=== PATIENT | male | born 1975 | race Caucasian/White ===

== ENCOUNTER 2016-12-05 09:41 | Emergency (ER) | payer SELFPAY ==
[2016-12-05 09:57] VITALS: BP 123/73
[2016-12-05] MEDS ORDERED: cefTRIAXone 2 GM in Sodium Chloride 0.9% 100 ML IV ONE (10:05)
[2016-12-05] MEDS ORDERED: Doxycycline 100 MG Cap PO ONE (10:06)
--- NOTE | 2016-12-05 10:10 | EDM.PDOC ---
ED HPI GENERAL MEDICAL PROBLEM - General Chief Complaint: Lower Extremity Injury/Pain Stated Complaint: LEG INJURY Time Seen by Provider: 12/05/16 09:55 Source of Information: Reports: Patient History Limitations: Reports: No Limitations - History of Present Illness INITIAL COMMENTS - FREE TEXT/NARRATIVE: 41-year-old male sent up from the occupational health clinic due to onset of swelling and redness of his right lower extremity over the last 24 hours. No known injuries. Patient does do a lot of work on his knees and these are callused. he states it hurts a little bit inferior to his knee like over the tibial tuberosity yesterday but overnight the leg has become grossly swollen and diffusely erythematous. He does not feel ill in terms of fever chills nausea or vomiting but doesn't feel fantastic either. Painful to walk painful to bend the knee. No previous similar problems. He is not diabetic. Had to miss work today due to leg pain. Onset: Today, Gradual ( Helical little bit of pain and redness inferior to his knee Yesterday but the entire leg is red and swollen today.) Onset Date: 12/04/16 Duration: Hour(s): Location: Reports: Lower Extremity, Right Quality: Reports: Ache, Throbbing Severity: Moderate Improves with: Reports: None Worsens with: Reports: Movement Context: Denies: Activity, Exercise ( Flexing the knee.), Lifting, Sick Contact , Trauma, Other Associated Symptoms: Reports: Malaise. Denies: No Other Symptoms, Confusion, Chest Pain, Cough, cough w sputum, Diaphoresis, Fever/Chills, Headaches, Loss of Appetite, Nausea/Vomiting, Rash, Seizure, Shortness of Breath, Syncope, Weakness Right Lower Leg Pain Score (Numeric/FACES): 7 - Related Data Allergies Allergy/AdvReac Type Severity Reaction Status Date / Time No Known Allergies Allergy Verified 12/05/16 09:57 Home Meds: Home Meds Ciprofloxacin HCl [Cipro] 500 mg PO BID #16 tablet 12/05/16 [Rx] Doxycycline [Vibramycin] 100 mg PO Q12HR #20 cap 12/05/16 [Rx] Social & Family History - Living Situation & Occupation Living situation: Reports: Occupation: Employed Review of Systems - Review of Systems Review Of Systems: See Below Constitutional: Denies: Chills, Diaphoresis, Fever, Weakness, Other Eyes: Reports: No Symptoms Ears: Reports: No Symptoms Nose: Reports: No Symptoms Mouth/Throat: Reports: No Symptoms Respiratory: Reports: No Symptoms Cardiovascular: Reports: No Symptoms GI/Abdominal: Reports: No Symptoms Genitourinary: Reports: No Symptoms Musculoskeletal: Reports: Leg Pain ( Right side see history of present illness) Skin: Reports: Erythema ( and swelling of the right lower extremity from the knee to the ankle) Neurological: Reports: No Symptoms Psychiatric: Reports: No Symptoms ED EXAM, GENERAL - Physical Exam Exam: See Below Exam Limited By: No Limitations General Appearance: Alert, WD/WN, No Apparent Distress Respiratory/Chest: No Respiratory Distress, Lungs Clear, Normal Breath Sounds, No Accessory Muscle Use Cardiovascular: Normal Peripheral Pulses, No Edema, No Murmur, Tachycardia ( resting heart rate of 1 10/m.) Peripheral Pulses: 3+: Posterior Tibial (L), Posterior Tibial (R), Dorsalis Pedis (L), Dorsalis Pedis (R) GI/Abdominal: Normal Bowel Sounds, Soft, No Organomegaly (Male) Exam: No Hernia, Normal Inspection, Inguinal Lymphadenopathy ( Normal shotty lymphadenopathy without any lymphadenitis in the right groin.) Back Exam: Normal Inspection, Full Range of Motion. No: CVA Tenderness (L), CVA Tenderness (R) Extremities: Redness ( The entire leg from the above the knee Down to the ankle is extremely erythematous and warm to palpation. There is a slight meniscus missing skin or superficial ulceration over the kneecap which is heavily callused. I suspect this is the nidus of infection. There is no weeping or oozing or drainage. Has a tattoo medial aspect of the leg that's been present for 20 years. The calf itself is for is soft palpation and easily pliable with no pain on palpation of the posterior midline of the leg to suggest a DVT. I suspect this is all cellulitis.) Neurological: Alert, Oriented, CN II-XII Intact, Normal Cognition Psychiatric: Normal Affect, Normal Mood Skin Exam: Warm, Dry, Intact, Normal Color, Erythema ( Right lower extremity from knee to ankle.), Increased Warmth, Rash ( Cellulitis rash.), Tattoo(s) ( Medial aspect of the right leg which is been present for 20 years.) Course - Vital Signs Last Recorded V/S: Last Vital Signs Temp 36.8 C 08/30/17 09:51 Pulse 110 H 12/05/16 09:51 Resp 18 12/05/16 09:51 BP 123/73 12/05/16 09:51 Pulse Ox 99 12/05/16 09:51 - Orders/Labs/Meds Orders: Active Orders 24 hr Category Date Time Status CULTURE BLOOD [BC] Stat Lab 12/05/16 11:30 Received CULTURE BLOOD [BC] Stat Lab 12/05/16 11:45 Received Sodium Chloride 0.9% [Normal Saline] 1,000 ml Med 12/05/16 10:15 Active IV ASDIRECTED Blood Culture x2 Reflex Set [OM.PC] Stat Oth 12/05/16 10:06 Ordered Medication Orders Sodium Chloride (Normal Saline) 1,000 mls @ 100 mls/hr IV ASDIRECTED DENTON Last Admin: 12/05/16 11:35 Dose: 100 mls/hr Labs: Laboratory Tests 12/05/16 12/05/16 12/05/16 Range/Units 11:30 11:30 11:30 WBC 8.21 (4.23-9.07) K/mm3 RBC 4.49 L (4.63-6.08) M/mm3 Hgb 14.4 (13.7-17.5) gm/L Hct 41.6 (40.1-51.0) % MCV 92.7 H (79.0-92.2) fl MCH 32.1 (25.7-32.2) pg MCHC 34.6 (32.2-35.5) g/dl RDW Std Deviation 43.4 (35.1-43.9) fL Plt Count 198 (163-337) K/mm3 MPV 9.4 (9.4-12.3) fl Neutrophils % (Manual) 69 H (40-60) % Band Neutrophils % 0 (0-10) % Lymphocytes % (Manual) 29 (20-40) % Atypical Lymphs % 0 % Monocytes % (Manual) 2 (2-10) % Eosinophils % (Manual) 0 L (0.8-7.0) % Basophils % (Manual) 0 L (0.2-1.2) Platelet Estimate Adequate RBC Morph Comment Normal ESR 28 H (0-15) mm/hr Sodium 137 (136-145) mEq/L Potassium 3.4 L (3.5-5.1) mEq/L Chloride 103 (98-107) mEq/L Carbon Dioxide 27 (21-32) mEq/L Anion Gap 10.4 (5-15) BUN 14 (7-18) mg/dL Creatinine 1.0 (0.7-1.3) mg/dL Est Cr Clr Drug Dosing 95.00 mL/min Estimated GFR (MDRD) > 60 (>60) mL/min BUN/Creatinine Ratio 14.0 (14-18) Glucose 109 H (74-106) mg/dL Calcium 9.4 (8.5-10.1) mg/dL Total Bilirubin 0.7 (0.2-1.0) mg/dL AST 15 (15-37) U/L ALT 20 (16-63) U/L Alkaline Phosphatase 66 (46-116) U/L C-Reactive Protein 8.2 H* (<1.0) mg/dL Total Protein 7.4 (6.4-8.2) g/dl Albumin 3.4 (3.4-5.0) g/dl Globulin 4.0 gm/dL Albumin/Globulin Ratio 0.9 L (1-2) Meds: Medications Generic Name Dose Route Start Last Admin Trade Name Freq PRN Reason Stop Dose Admin Sodium Chloride 1,000 mls @ 100 mls/hr 12/05/16 10:15 12/05/16 11:35 Normal Saline IV 100 mls/hr ASDIRECTED DENTON Administration Discontinued Medications Generic Name Dose Route Start Last Admin Trade Name Freq PRN Reason Stop Dose Admin Doxycycline Hyclate 200 mg 12/05/16 10:06 12/05/16 11:43 Vibramycin PO 12/05/16 10:07 200 mg ONETIME ONE Administration Ceftriaxone Sodium 2 gm/ 100 mls @ 200 mls/hr 12/05/16 10:05 12/05/16 11:43 Sodium Chloride IV 12/05/16 10:34 200 mls/hr ONETIME ONE Administration - Radiology Interpretation Free Text/Narrative:: 41-year-old Male presents to the ED with acute erythema and swelling of his right lower extremity over the last 24 hours. On examination he has an active cellulitis of his entire leg. He states that he had some mild pain inferior to his kneecap over the tibial tuberosity yesterday and it's progressed very quickly overnight to become grossly swollen and erythematous. The right leg is almost 2 times the size of the left leg at this time. Clinically he does not have a DVT. he has no signs of systemic illness from infection at this time. He has sinus tachycardia at 110/min at rest. But he has not yet ate or drank today. plan DI ultrasound of the leg will be obtained to rule out a DVT. Labs will be collected including blood cultures 2. He will be given Rocephin 2 g intravenously and doxycycline 200 mg orally. - Re-Assessments/Exams Free Text/Narrative Re-Assessment/Exam: 12/05/16 11:56Doppler ultrasound was performed on the right lower leg and it was negative for any DVT. He did suggest edema and cellulitis. Also multiple small lymph nodes are appreciated in the inguinal area which were palpable on exam. there is been a delay in obtaining blood cultures 2 and therefore antibiotics have yet to be started. Also lab tests are not yet available. 12/05/16 12:32Labs reveal a normal white count at 8.21 with 69% neutrophils and no bands hemoglobin is 14.4 with hematocrit of 41.6. Platelets are normal chemistry showed a slightly low potassium at 3.4. The remainder the chemistry is normal. CRP is mildly elevated at 8.2 sedimentation rate is 28. Treatment will be continuing doxycycline 100 mg twice daily for another 10 days as well as use of Cipro 500 twice daily for 8 days to clear up cellulitis infection in his right leg.he'll be out 12/05/16 12:34: Will be out of work until December 10 Departure - Departure Time of Disposition: 12:35 Disposition: Home, Self-Care 01 Condition: Fair Clinical Impression: Cellulitis of right lower extremity - Discharge Information Prescriptions: Doxycycline [Vibramycin] 100 mg PO Q12HR #20 cap Ciprofloxacin HCl [Cipro] 500 mg PO BID #16 tablet Instructions: Cellulitis, Adult Referrals: PCP,None [Primary Care Provider] - Forms: ED Department Discharge, ED Return to Work/School Form Additional Instructions: Evaluation in the emergency department today in regards to acute onset of redness and swelling and pain in the right lower extremity from the knee to the ankle. As you stated there was slight discomfort below the kneecap yesterday and this morning the entire leg is now red and swollen. We call this cellulitis which means infection spreading under the skin. It is almost always caused by a staph aureus bacteria that is already on our skin but found a way to get under the skin through a kai, scrape etc. Lab work revealed a normal white count but markers for underlying infection are slightly elevated with a CRP of 8.2 and normal is 1. You were therefore treated with antibiotics Rocephin 2 g intravenously and doxycycline was started orally 200 mg by mouth today. Treatment at home will be to elevate the leg is much as possible for the next 48 hours. Antibiotics are to be Cipro 500 mg by mouth twice daily for 8 days and doxycycline 100 mg twice daily for 10 days starting at [facility]. Motrin 600 mg every 6 hours needed to reduce pain and inflammation. There may not be much change in the redness or swelling in the next 24 hours and in fact it may look a little bit worse. But over the next 24 hours , ie. 48 hrs posttreatment marked improvement in the redness and swelling should be evident. It should nearly be back to normal in 72 hours. You would need to return to the hospital if the redness was traveling up to your groin he developed nausea vomiting or severe fever and chills. Otherwise off work until December 10 which is Day. - My Orders Last 24 Hours: My Active Orders 12/05/16 10:06 Blood Culture x2 Reflex Set [OM.PC] Stat 12/05/16 10:15 Sodium Chloride 0.9% [Normal Saline] 1,000 ml IV ASDIRECTED 12/05/16 11:30 CULTURE BLOOD [BC] Stat 12/05/16 11:45 CULTURE BLOOD [BC] Stat - Assessment/Plan Last 24 Hours: My Active Orders 12/05/16 10:06 Blood Culture x2 Reflex Set [OM.PC] Stat 12/05/16 10:15 Sodium Chloride 0.9% [Normal Saline] 1,000 ml IV ASDIRECTED 12/05/16 11:30 CULTURE BLOOD [BC] Stat 12/05/16 11:45 CULTURE BLOOD [BC] Stat
[2016-12-05] MEDS ORDERED: Sodium Chloride 0.9% 1,000 ML IV SCH (10:15)
--- NOTE | 2016-12-05 11:31 | US ---
Right right lower extremity deep venous ultrasound: Duplex and color flow imaging was obtained of the right common femoral, proximal greater saphenous, superficial femoral, popliteal, posterior tibial and peroneal veins. Left common femoral vein was also evaluated. Findings: Normal phasic flow, augmentation and compression is seen. Multiple lymph nodes are seen within the right groin which are felt to be incidental if patient has no palpable abnormalities. Impression: 1. No evidence of deep venous thrombosis within the right lower extremity or within the left common femoral vein. 2. Lymph nodes as noted above. Diagnostic code #2
== END 2016-12-05 13:35 | disposition home or self-care (01) ==
LOC: JD.ED 09:41
DX: L03.115 Cellulitis of right lower limb (principal)
CPT/HCPCS: 36415; 80053; 85025; 85652; 86140; 87040; 93971; 96361; 96365; 99284; A9270; J0696; J7030; J7040; 99283

== ENCOUNTER 2019-07-05 17:33 | Emergency (ER) | payer SELFPAY ==
[2019-07-05 17:46] VITALS: BP 136/87; PULSE 122
--- NOTE | 2019-07-05 18:16 | EDM.PDOC ---
ED HPI GENERAL MEDICAL PROBLEM - General Chief Complaint: General Stated Complaint: DRUG TEST Time Seen by Provider: 07/05/19 17:39 Source of Information: Reports: Patient History Limitations: Reports: No Limitations - History of Present Illness INITIAL COMMENTS - FREE TEXT/NARRATIVE: Mr. Vasquez is a very pleasant 44-year-old man with no chronic medical problems, who now presents to the ED stating that he started feeling like his face was pale and flushed, and that he had a burning sensation in his chest and abdomen, along with rapid and irregular palpitations and slight nausea, around 9:30 this morning. No prior similar symptoms. Here in the ED, the patient is found to be tachycardic at 122 bpm, otherwise, he is hemodynamically stable, afebrile, saturating 100% on room air. The patient states that he drinks 2 drinks per day, with the most recent drink around 14:00 afternoon. He acknowledges that he used to snort smoke, and injecting methamphetamine, but he states that the last time he did that was in October 2018, just prior to going to long term. He states that he was released from long term on 06/18/2019, and that he has not resumed using methamphetamine or any other drugs. The patient denies recent fever, chills, cough, dyspnea, chest pain, palpitations, vomiting, constipation, diarrhea, abdominal pain, urinary symptoms , recent weight gain or weight loss, recent bloody bowel movements or black bowel movements, recent joint aches, headaches, or rashes. The patient does not have a PCP. He did not receive an influenza vaccine this season, and declined an offer to receive one here today. - Related Data Allergies Allergy/AdvReac Type Severity Reaction Status Date / Time No Known Allergies Allergy Verified 07/05/19 17:46 Home Meds: Home Meds . [No Known Home Meds] 07/05/19 [History] Past Medical History HEENT History: Reports: Impaired Vision - Past Surgical History HEENT Surgical History: Reports: Oral Surgery (2 wisdom teeth extracted) Social & Family History - Family History Family Medical History: Noncontributory - Tobacco Use Smoking Status *Q: Current Every Day Smoker Years of Tobacco use: 30 Packs/Tins Daily: 1 Packs/Tins Daily Comment: Down from 1.5 ppd - Caffeine Use Caffeine Use: Reports: Coffee - Alcohol Use Alcohol Use History: Yes Days Per Week of Alcohol Use: 7 Number of Drinks Per Day: 2 Total Drinks Per Week: 14 Alcohol Use Frequency: Daily - Recreational Drug Use Recreational Drug Use: Yes Drug Use in Last 12 Months: Yes Recreational Drug Type: Reports: Cocaine (last snorted around 2004), Marijuana/ Hashish (last smoked around 1996), Methamphetamine (last snorted, smoked, or injected October 2018), Psilocybin (Mushrooms) (last ate around 2009) - Living Situation & Occupation Living situation: Reports: , with Family Occupation: Unemployed ED ROS GENERAL - Review of Systems Review Of Systems: Comprehensive ROS is negative, except as noted in HPI. ED EXAM, GENERAL - Physical Exam Exam: See Below Exam Limited By: No Limitations General Appearance: Alert, WD/WN, No Apparent Distress Eye Exam: Bilateral Eye: EOMI, Normal Inspection Ears: Normal External Exam, Hearing Grossly Normal Nose: Normal Inspection Throat/Mouth: Normal Inspection, Normal Lips, Normal Voice, No Airway Compromise Head: Atraumatic, Normocephalic Neck: Normal Inspection, Full Range of Motion Respiratory/Chest: No Respiratory Distress, Lungs Clear, Normal Breath Sounds, No Accessory Muscle Use Cardiovascular: Normal Peripheral Pulses, No Edema, No Gallop, No JVD, No Murmur , No Rub, Tachycardia (regular) Peripheral Pulses: 4+: Radial (L), Radial (R) GI/Abdominal: Normal Bowel Sounds, Soft, Non-Tender, No Organomegaly, No Distention, No Abnormal Bruit, No Mass (Male) Exam: Deferred Rectal (Males) Exam: Deferred Back Exam: Normal Inspection, Full Range of Motion, NT Extremities: Normal Inspection, Normal Range of Motion, No Pedal Edema, Normal Capillary Refill Neurological: Alert, Oriented, Normal Cognition, No Motor/Sensory Deficits Psychiatric: Normal Affect Skin Exam: Warm, Dry, Intact, Normal Color, No Rash EKG INTERPRETATION EKG Date: 07/05/19 Time: 18:26 Rhythm: Other (Sinus tachycardia) Rate (Beats/Min): 124 [place]: Normal P-Wave: Present QRS: Normal ST-T: Normal QT: Normal Comparison: NA - No Prior EKG Course - Vital Signs Last Recorded V/S: Last Vital Signs Temp 37.3 C 07/05/19 17:43 Pulse 122 H 07/05/19 17:43 Resp 19 07/05/19 17:43 BP 136/87 07/05/19 17:43 Pulse Ox 100 07/05/19 17:43 - Orders/Labs/Meds Orders: Active Orders 24 hr Category Date Time Status EKG Documentation Completion [RC] STAT Care 07/05/19 18:00 Active Magnesium Sulfate/Water [Magnesium Sulfate in Water Med 07/05/19 19:37 Ordered Premix] 2 gm Premix Bag 1 bag IV ONETIME Medication Orders Magnesium Sulfate 2 gm/ Premix 50 mls @ 50 mls/hr IV ONETIME ONE Stop: 07/05/19 20:36 Labs: Laboratory Tests 07/05/19 07/05/19 07/05/19 Range/Units 18:20 18:20 18:20 WBC 8.37 (4.23-9.07) K/mm3 RBC 4.53 L (4.63-6.08) M/mm3 Hgb 15.0 (13.7-17.5) gm/dl Hct 42.6 (40.1-51.0) % MCV 94.0 H (79.0-92.2) fl MCH 33.1 H (25.7-32.2) pg MCHC 35.2 (32.2-35.5) g/dl RDW Std Deviation 43.7 (35.1-43.9) fL Plt Count 201 (163-337) K/mm3 MPV 9.2 L (9.4-12.3) fl Neutrophils % (Manual) 82 H (40-60) % Band Neutrophils % 1 (0-10) % Lymphocytes % (Manual) 12 L (20-40) % Atypical Lymphs % 0 % Monocytes % (Manual) 5 (2-10) % Eosinophils % (Manual) 0 L (0.8-7.0) % Basophils % (Manual) 0 L (0.2-1.2) Platelet Estimate Adequate Plt Morphology Comment Normal RBC Morph Comment Normal D-Dimer, Quantitative < 0.19 L (0.19-0.50) mg/L Sodium 143 (136-145) mEq/L Potassium 2.9 L (3.5-5.1) mEq/L Chloride 102 (98-107) mEq/L Carbon Dioxide 29 (21-32) mEq/L Anion Gap 14.9 (5-15) BUN 11 (7-18) mg/dL Creatinine 1.0 (0.7-1.3) mg/dL Est Cr Clr Drug Dosing 92.15 mL/min Estimated GFR (MDRD) > 60 (>60) mL/min BUN/Creatinine Ratio 11.0 L (14-18) Glucose 108 H (74-106) mg/dL Calcium 9.6 (8.5-10.1) mg/dL Magnesium 1.6 L (1.8-2.4) mg/dl Total Bilirubin 1.0 (0.2-1.0) mg/dL AST 17 (15-37) U/L ALT 20 (16-63) U/L Alkaline Phosphatase 70 (46-116) U/L Troponin I < 0.017 (0.00-0.056) ng/mL Total Protein 7.8 (6.4-8.2) g/dl Albumin 4.2 (3.4-5.0) g/dl Globulin 3.6 gm/dL Albumin/Globulin Ratio 1.2 (1-2) TSH 3rd Generation 1.118 (0.358-3.74) uIU/mL Urine Opiates Screen (EBZSWD=843) Ur Buprenorphine Scrn (CUTOFF=10) Ur Oxycodone Screen (VSG1MX=076) Urine Methadone Screen (SJP7XD=778) Ur Propoxyphene Screen (AGLIQE=256) Ur Barbiturates Screen (BLBJEG=394) Ur Tricyclics Screen (JSVOWF=458) Ur Phencyclidine Scrn (CUTOFF=25) Ur Amphetamine Screen (PGDQPF=916) U Methamphetamines Scrn (BIDWWC=817) U Benzodiazepines Scrn (PEWBVX=359) U Cocaine Metab Screen (UAJPAJ=800) U Marijuana (THC) Screen (CUTOFF=50) 07/05/19 Range/Units 18:50 WBC (4.23-9.07) K/mm3 RBC (4.63-6.08) M/mm3 Hgb (13.7-17.5) gm/dl Hct (40.1-51.0) % MCV (79.0-92.2) fl MCH (25.7-32.2) pg MCHC (32.2-35.5) g/dl RDW Std Deviation (35.1-43.9) fL Plt Count (163-337) K/mm3 MPV (9.4-12.3) fl Neutrophils % (Manual) (40-60) % Band Neutrophils % (0-10) % Lymphocytes % (Manual) (20-40) % Atypical Lymphs % % Monocytes % (Manual) (2-10) % Eosinophils % (Manual) (0.8-7.0) % Basophils % (Manual) (0.2-1.2) Platelet Estimate Plt Morphology Comment RBC Morph Comment D-Dimer, Quantitative (0.19-0.50) mg/L Sodium (136-145) mEq/L Potassium (3.5-5.1) mEq/L Chloride (98-107) mEq/L Carbon Dioxide (21-32) mEq/L Anion Gap (5-15) BUN (7-18) mg/dL Creatinine (0.7-1.3) mg/dL Est Cr Clr Drug Dosing mL/min Estimated GFR (MDRD) (>60) mL/min BUN/Creatinine Ratio (14-18) Glucose (74-106) mg/dL Calcium (8.5-10.1) mg/dL Magnesium (1.8-2.4) mg/dl Total Bilirubin (0.2-1.0) mg/dL AST (15-37) U/L ALT (16-63) U/L Alkaline Phosphatase (46-116) U/L Troponin I (0.00-0.056) ng/mL Total Protein (6.4-8.2) g/dl Albumin (3.4-5.0) g/dl Globulin gm/dL Albumin/Globulin Ratio (1-2) TSH 3rd Generation (0.358-3.74) uIU/mL Urine Opiates Screen Negative (OSKNMT=270) Ur Buprenorphine Scrn Negative (CUTOFF=10) Ur Oxycodone Screen Negative (ZST3HE=358) Urine Methadone Screen Negative (HDY9VO=836) Ur Propoxyphene Screen Negative (AYYCYZ=168) Ur Barbiturates Screen Negative (IPGHAM=102) Ur Tricyclics Screen Negative (NQQIDR=293) Ur Phencyclidine Scrn Negative (CUTOFF=25) Ur Amphetamine Screen Presumptive positive H (UIIURR=107) U Methamphetamines Scrn Presumptive positive H (WKSVIA=534) U Benzodiazepines Scrn Negative (NMDKHJ=274) U Cocaine Metab Screen Negative (FZPBLI=866) U Marijuana (THC) Screen Negative (CUTOFF=50) Meds: Medications Generic Name Dose Route Start Last Admin Trade Name Freq PRN Reason Stop Dose Admin Magnesium Sulfate 2 gm/ Premix 50 mls @ 50 mls/hr 07/05/19 19:37 IV 07/05/19 20:36 ONETIME ONE Discontinued Medications Generic Name Dose Route Start Last Admin Trade Name Freq PRN Reason Stop Dose Admin Potassium Chloride 40 meq 07/05/19 19:38 Klor-Con M20 PO 07/05/19 19:39 ONETIME ONE - Re-Assessments/Exams Free Text/Narrative Re-Assessment/Exam: 07/05/19 18:04 As above, the patient presents with symptoms of a burning sensation in his abdomen and chest, along with rapid and irregular palpitations and slight nausea. On examination, the patient is tachycardic, and I note that his oxygen saturation is 100% on room air. His symptoms may simply be due to anxiety/ panic attack, but I have ordered a work-up to rule out metabolic causes, including blood work, a urine drug screen, and an ECG. 07/05/19 19:42 The patient CBC is unremarkable. His CMP is remarkable for a potassium depressed at 2.9, and a blood glucose mildly elevated at 108, with the remainder of his CMP being unremarkable. His magnesium level is depressed at 1.6. His troponin is undetectably low. His TSH is within normal limits at 1.118. His D-dimer is undetectably low. His urine drug screen is positive for both amphetamine and amphetamine, is otherwise negative. I discussed the patient's test results with the patient. He acknowledged that he has been using meth for the past few days, including today. He was afraid of telling me earlier, because he is currently on parole. For today's purposes, the patient will be given a 2 g Mg-rider, followed by 40 mEq of oral KCl. He will then be discharged home. I recommended that he seek professional help with respect to his methamphetamine use; the patient acknowledged that he was off methamphetamine for 10-months while in senior living, and he thinks he can do it again without professional help. Nevertheless, I will refer him to [facility]. He states that he has been to [facility] in the past. Departure - Departure Time of Disposition: 19:45 Disposition: Home, Self-Care 01 Condition: Good Clinical Impression: Hypokalemia, Hypomagnesemia, Methamphetamine abuse - Discharge Information *PRESCRIPTION DRUG MONITORING PROGRAM REVIEWED*: Not Applicable *COPY OF PRESCRIPTION DRUG MONITORING REPORT IN PATIENT VANNESSA: Not Applicable Referrals: PCP,None [Primary Care Provider] - Forms: ED Department Discharge Additional Instructions: You were seen in the emergency room for feeling pale and flushed in your face, a burning sensation in your chest and abdomen, a rapid and irregular heartbeat, and slight nausea. Work-up in the ER included blood work, a urine drug screen, and an ECG. Your blood work found your magnesium level to be low at 1.6 and your potassium to be low at 2.9. Your urine drug screen was positive for methamphetamine. The remainder of your work-up was unremarkable. You were given IV magnesium and oral potassium replacements in the ER. We strongly recommend that you seek professional help regarding your methamphetamine use. We recommend [facility]: [address] [place] [phone] If any other problems, please do not hesitate to return to the ER. Sepsis Event Note - Evaluation Sepsis Screening Result: No Definite Risk - Focused Exam Vital Signs: Vital Signs Temp Pulse Resp BP Pulse Ox 07/05/19 17:43 37.3 C 122 H 19 136/87 100 Date Exam was Performed: 07/05/19 Time Exam was Performed: 19:42 - My Orders Last 24 Hours: My Active Orders 07/05/19 18:00 EKG Documentation Completion [RC] STAT 07/05/19 19:37 Magnesium Sulfate/Water [Magnesium Sulfate in Water Premix] 2 gm Premix Bag 1 bag IV ONETIME - Assessment/Plan Last 24 Hours: My Active Orders 07/05/19 18:00 EKG Documentation Completion [RC] STAT 07/05/19 19:37 Magnesium Sulfate/Water [Magnesium Sulfate in Water Premix] 2 gm Premix Bag 1 bag IV ONETIME
[2019-07-05] MEDS ORDERED: Magnesium Sulfate/Water 2 GM in Premix Bag 1 BAG IV ONE (19:37)
[2019-07-05] MEDS ORDERED: Potassium Chloride 20 MEQ Tab.ER PO ONE (19:38)
== END 2019-07-05 20:54 | disposition home or self-care (01) ==
LOC: JD.ED 17:33
DX: E87.6 Hypokalemia (principal); E83.42 Hypomagnesemia; F15.10 Other stimulant abuse, uncomplicated; R00.1 Bradycardia, unspecified; F17.210 Nicotine dependence, cigarettes, uncomplicated
CPT/HCPCS: 36415; 80053; 80306; 83735; 84443; 84484; 85007; 85027; 85379; 93005; 96365; 99285; A9270; J3475; 93010; 99284

== ENCOUNTER 2019-07-07 12:25 | Emergency (ER) | payer SELFPAY ==
[2019-07-07] MEDS ORDERED: Sodium Chloride 0.9% 1,000 ML IV ONE (13:13)
[2019-07-07] MEDS ORDERED: Sodium Chloride 0.9% 10 ML Syringe FLUSH PRN (13:13)
[2019-07-07] MEDS ORDERED: LORazepam 0.5 MG Tab PO ONE (13:13)
[2019-07-07] MEDS ORDERED: LORazepam 2 MG/ML SDV IVPUSH ONE (13:18)
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
[2019-07-07] MEDS ORDERED: Potassium Chloride 20 MEQ Tab.ER PO ONE (14:49)
[2019-07-07 15:46] VITALS: BP 115/90; PULSE 120
== END 2019-07-07 15:30 | disposition home or self-care (01) ==
LOC: JD.ED 12:25
DX: T43.621A Poisoning by amphetamines, accidental (unintentional), initial encounter (principal); R39.198 Other difficulties with micturition; F17.210 Nicotine dependence, cigarettes, uncomplicated
CPT/HCPCS: 36415; 80053; 80306; 81001; 83735; 85025; 96361; 96374; 99284; A9270; J2060; J7030

== ENCOUNTER 2019-08-30 18:30 | Emergency (ER) | payer SELFPAY ==
[2019-08-30 18:41] VITALS: BP 126/104; PULSE 115
[2019-08-30] MEDS ORDERED: Lactated Ringers 1,000 ML IV ONE (19:31)
[2019-08-30] MEDS ORDERED: LORazepam 2 MG/ML SDV IVPUSH STA (19:31)
[2019-08-30] MEDS ORDERED: Ondansetron 4 MG/2 ML SDV IVPUSH ONE (19:32)
--- NOTE | 2019-08-30 19:37 | EDM.PDOCBH ---
ED HPI GENERAL MEDICAL PROBLEM - General Chief Complaint: Drug or Alcohol Abuse Stated Complaint: [facility] Time Seen by Provider: 08/30/19 19:01 Source of Information: Reports: Patient History Limitations: Reports: No Limitations - History of Present Illness INITIAL COMMENTS - FREE TEXT/NARRATIVE: Mr. Nicolas is a pleasant 44-year-old man with a past medical history significant for polysubstance abuse, with near-daily methamphetamine use, who now presents to the ED by EMS with a complaint of paranoia and the sensation of buzzing all over, dyspnea, tinnitus, chest pain, inability to move, and feeling like he is going to . The patient states that he injected methamphetamine around 9:00 this morning. He states that he was at [facility], and feels that people were pointing at him and yelling at him, saying that he had COVID-19. He went to his car, where he sat for 2 hours before EMS arrived. The patient states that he has been using methamphetamine on and off for the past 15 years, and he has never previously had similar symptoms. He states that he drinks 2 drinks daily , but none today. Here in the ED, the patient was initially found to be tachycardic at 115 bpm, and tachypneic at 26 rpm, otherwise, he is hemodynamically stable, afebrile, saturating 100% on room air. The patient reports that he has had a slight cough for 2 weeks. He states that he was tested for the SARS-CoV-2 virus this past 08/25/2019, due to not feeling well, informed of a negative result yesterday, 08/29/2019. He believes that he had a fever Saturday evening, 08/29/2019. He reports feeling some chest pain last night. He has had nausea and diarrhea today. He estimates that he has had a 5 to 8 pound unintentional weight loss over the past 2 weeks. Otherwise, he denies recent sore throat, ear pain, nasal or sinus congestion, dyspnea, chest pain, palpitations, vomiting, constipation, abdominal pain, urinary symptoms, recent bloody bowel movements or black bowel movements, recent joint aches, headaches, or rashes. The patient does not have a PCP. Chest Pain Score (Numeric/FACES): 7 - Related Data Allergies Allergy/AdvReac Type Severity Reaction Status Date / Time No Known Allergies Allergy Verified 08/30/19 18:41 Home Meds: Home Meds . [No Known Home Meds] 07/05/19 [History] Past Medical History HEENT History: Reports: Impaired Vision Psychiatric History: Reports: Addiction (methamphetamine) - Past Surgical History HEENT Surgical History: Reports: Oral Surgery (2 wisdom teeth extracted) Social & Family History - Family History Family Medical History: Noncontributory - Tobacco Use Smoking Status *Q: Current Every Day Smoker Years of Tobacco use: 29 Packs/Tins Daily: 0.8 Packs/Tins Daily Comment: Down from 1.5 ppd - Caffeine Use Caffeine Use: Reports: Soda - Alcohol Use Alcohol Use History: Yes Days Per Week of Alcohol Use: 7 Number of Drinks Per Day: 2 Total Drinks Per Week: 14 Alcohol Use Frequency: Daily - Recreational Drug Use Recreational Drug Use: Yes Drug Use in Last 12 Months: Yes Recreational Drug Type: Reports: Cocaine (last snorted 2004), Ecstasy (last took 2009), LSD (Acid) (last took 2017), Marijuana/Hashish (last smoked 1996), Methamphetamine (snorts, smokes, injects near-daily), Psilocybin (Mushrooms) ( last ate 2009) - Living Situation & Occupation Living situation: Reports: , with Significant Other (Girlfriend) 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 ED EXAM, BEHAVIORAL HEALTH - Physical Exam Exam: See Below Exam Limited By: No Limitations General Appearance: Alert, Anxious, Thin Eye Exam: Bilateral Eye: EOMI, Normal Inspection Ears: Normal External Exam, Hearing Grossly Normal Nose: Normal Inspection Throat/Mouth: Normal Inspection, Normal Lips, Normal Voice, No Airway Compromise Head: Atraumatic, Normocephalic Neck: Normal Inspection, Full Range of Motion Respiratory/Chest: No Respiratory Distress, Lungs Clear, Normal Breath Sounds, No Accessory Muscle Use Cardiovascular: Normal Peripheral Pulses, Regular Rate, Rhythm, No Edema, No Gallop, No JVD, No Murmur, No Rub GI/Abdominal: Normal Bowel Sounds, Soft, No Organomegaly, No Distention, No Abnormal Bruit, No Mass, Tender (Questionable tenderness to the left lower quadrant only. Nontender elsewhere.) (Male) Exam: Deferred Rectal (Males) Exam: Deferred Back Exam: Normal Inspection, Full Range of Motion, NT Extremities: Normal Inspection, Normal Range of Motion, No Pedal Edema, Normal Capillary Refill Neurological: Alert, No Motor/Sensory Deficits, Oriented x 3 Psychiatric: Restless, Paranoid Thoughts Skin Exam: Warm, Dry, Intact, Normal color, No rash EKG INTERPRETATION EKG Date: 08/30/19 Time: 20:25 Rhythm: Other (Sinus tachycardia) Rate (Beats/Min): 101 [place]: Normal P-Wave: Present QRS: Normal ST-T: Normal QT: Normal Comparison: No Change (07/05/2019) COURSE, BEHAVIORAL HEALTH COMP - Course Vital Signs: Last Vital Signs Temp 36.7 C 08/30/19 18:32 Pulse 115 H 08/30/19 18:32 Resp 26 H 08/30/19 18:32 BP 126/104 H 08/30/19 18:32 Pulse Ox 100 08/30/19 18:32 Orders, Labs, Meds: Active Orders 24 hr Category Date Time Status EKG Documentation Completion [RC] STAT Care 08/30/19 19:28 Active Abdomen 1V Upright [CR] Stat Exams 08/30/19 19:30 Taken Laboratory Tests 08/30/19 08/30/19 08/30/19 Range/Units 19:57 19:57 20:25 WBC 6.44 (4.23-9.07) K/mm3 RBC 4.40 L (4.63-6.08) M/mm3 Hgb 14.7 (13.7-17.5) gm/dl Hct 41.2 (40.1-51.0) % MCV 93.6 H (79.0-92.2) fl MCH 33.4 H (25.7-32.2) pg MCHC 35.7 H (32.2-35.5) g/dl RDW Std Deviation 39.3 (35.1-43.9) fL Plt Count 178 (163-337) K/mm3 MPV 9.6 (9.4-12.3) fl Neutrophils % (Manual) 48 (40-60) % Band Neutrophils % 0 (0-10) % Lymphocytes % (Manual) 44 H (20-40) % Atypical Lymphs % 0 % Monocytes % (Manual) 6 (2-10) % Eosinophils % (Manual) 2 (0.8-7.0) % Basophils % (Manual) 0 L (0.2-1.2) Platelet Estimate Adequate RBC Morph Comment Normal Sodium (136-145) mEq/L Potassium (3.5-5.1) mEq/L Chloride (98-107) mEq/L Carbon Dioxide (21-32) mEq/L Anion Gap (5-15) BUN (7-18) mg/dL Creatinine (0.7-1.3) mg/dL Est Cr Clr Drug Dosing mL/min Estimated GFR (MDRD) (>60) mL/min BUN/Creatinine Ratio (14-18) Glucose (74-106) mg/dL Calcium (8.5-10.1) mg/dL Magnesium (1.8-2.4) mg/dl Total Bilirubin (0.2-1.0) mg/dL AST (15-37) U/L ALT (16-63) U/L Alkaline Phosphatase (46-116) U/L Troponin I (0.00-0.056) ng/mL Total Protein (6.4-8.2) g/dl Albumin (3.4-5.0) g/dl Globulin gm/dL Albumin/Globulin Ratio (1-2) Urine Color Yellow (Yellow) Urine Appearance Cloudy H (Clear) Urine pH 7.5 (5.0-8.0) Ur Specific [place] 1.025 (1.005-1.030) Urine Protein Negative (Negative) Urine Glucose (UA) Negative (Negative) Urine Ketones Negative (Negative) Urine Occult Blood Negative (Negative) Urine Nitrite Negative (Negative) Urine Bilirubin Negative (Negative) Urine Urobilinogen 1.0 (0.2-1.0) Ur Leukocyte Esterase Negative (Negative) Urine RBC 0-5 (0-5) /hpf Urine WBC 0-5 (0-5) /hpf Ur Squamous Epith Cells 0-5 (0-5) /hpf Amorphous Sediment Many H (NOT SEEN) /hpf Urine Bacteria Few (FEW) /hpf Urine Mucus Few (FEW) /hpf Urine Opiates Screen Negative (HBODSO=392) Ur Buprenorphine Scrn Negative (CUTOFF=10) Ur Oxycodone Screen Negative (ADI5EH=621) Urine Methadone Screen Negative (UQA6FT=003) Ur Propoxyphene Screen Negative (FHNWKL=526) Ur Barbiturates Screen Negative (WMTFCK=482) Ur Tricyclics Screen Negative (ZHIHQV=050) Ur Phencyclidine Scrn Negative (CUTOFF=25) Ur Amphetamine Screen Presumptive positive H (TBHTGD=591) U Methamphetamines Scrn Presumptive positive H (BRHNNG=568) U Benzodiazepines Scrn Negative (ZTLHRX=508) U Cocaine Metab Screen Negative (BLGURD=899) U Marijuana (THC) Screen Negative (CUTOFF=50) 08/29/ Range/Units 20:25 WBC (4.23-9.07) K/mm3 RBC (4.63-6.08) M/mm3 Hgb (13.7-17.5) gm/dl Hct (40.1-51.0) % MCV (79.0-92.2) fl MCH (25.7-32.2) pg MCHC (32.2-35.5) g/dl RDW Std Deviation (35.1-43.9) fL Plt Count (163-337) K/mm3 MPV (9.4-12.3) fl Neutrophils % (Manual) (40-60) % Band Neutrophils % (0-10) % Lymphocytes % (Manual) (20-40) % Atypical Lymphs % % Monocytes % (Manual) (2-10) % Eosinophils % (Manual) (0.8-7.0) % Basophils % (Manual) (0.2-1.2) Platelet Estimate RBC Morph Comment Sodium 140 (136-145) mEq/L Potassium 3.0 L (3.5-5.1) mEq/L Chloride 103 (98-107) mEq/L Carbon Dioxide 30 (21-32) mEq/L Anion Gap 10.0 (5-15) BUN 5 L (7-18) mg/dL Creatinine 0.8 (0.7-1.3) mg/dL Est Cr Clr Drug Dosing 115.19 mL/min Estimated GFR (MDRD) > 60 (>60) mL/min BUN/Creatinine Ratio 6.3 L (14-18) Glucose 101 (74-106) mg/dL Calcium 8.8 (8.5-10.1) mg/dL Magnesium 1.8 (1.8-2.4) mg/dl Total Bilirubin 0.9 (0.2-1.0) mg/dL AST 13 L (15-37) U/L ALT 17 (16-63) U/L Alkaline Phosphatase 112 (46-116) U/L Troponin I < 0.017 (0.00-0.056) ng/mL Total Protein 6.9 (6.4-8.2) g/dl Albumin 3.6 (3.4-5.0) g/dl Globulin 3.3 gm/dL Albumin/Globulin Ratio 1.1 (1-2) Urine Color (Yellow) Urine Appearance (Clear) Urine pH (5.0-8.0) Ur Specific [place] (1.005-1.030) Urine Protein (Negative) Urine Glucose (UA) (Negative) Urine Ketones (Negative) Urine Occult Blood (Negative) Urine Nitrite (Negative) Urine Bilirubin (Negative) Urine Urobilinogen (0.2-1.0) Ur Leukocyte Esterase (Negative) Urine RBC (0-5) /hpf Urine WBC (0-5) /hpf Ur Squamous Epith Cells (0-5) /hpf Amorphous Sediment (NOT SEEN) /hpf Urine Bacteria (FEW) /hpf Urine Mucus (FEW) /hpf Urine Opiates Screen (QHRHMW=402) Ur Buprenorphine Scrn (CUTOFF=10) Ur Oxycodone Screen (COB0EY=766) Urine Methadone Screen (WLU2DI=487) Ur Propoxyphene Screen (KBXXYW=766) Ur Barbiturates Screen (WSAUAP=132) Ur Tricyclics Screen (OETTGG=490) Ur Phencyclidine Scrn (CUTOFF=25) Ur Amphetamine Screen (IMPAZY=105) U Methamphetamines Scrn (NDHUMP=864) U Benzodiazepines Scrn (WPBGEH=950) U Cocaine Metab Screen (YHWEWU=676) U Marijuana (THC) Screen (CUTOFF=50) Medications Discontinued Medications Generic Name Dose Route Start Last Admin Trade Name Freq PRN Reason Stop Dose Admin Lactated Ringer's 1,000 mls @ 999 mls/hr 08/30/19 19:31 08/30/19 20:00 Ringers, Lactated IV 08/30/19 20:31 999 mls/hr .BOLUS ONE Administration Lorazepam 1 mg 08/30/19 19:31 08/30/19 19:59 Ativan IVPUSH 08/30/19 19:32 1 mg ONETIME STA Administration Ondansetron HCl 4 mg 08/30/19 19:32 08/30/19 19:59 Zofran IVPUSH 08/30/19 19:33 4 mg ONETIME ONE Administration Potassium Chloride 40 meq 08/30/19 21:00 08/30/19 21:16 Klor-Con M20 PO 08/30/19 21:01 40 meq ONETIME ONE Administration Medical Clearance: 08/30/19 19:33 As above, the patient is displaying symptoms of paranoia and those of hyperventilation, including feeling a buzzing sensation all over, dyspneic,, inability to move, and feeling like he was tazed for 2 hours. All of his symptoms are most likely due to his recent methamphetamine use, however, I have ordered a work-up to evaluate for other etiologies, including blood work, a urinalysis, a urine drug screen, and upright abdominal x-ray, and an ECG. In the meantime, the patient will be given IV fluid, some IV Ativan, and IV Zofran. 08/30/19 21:01 The patient's potassium returned at 3.0, most likely secondary to his hyperventilation. I have ordered 40 mEq of oral KCl. 08/30/19 21:10 Upright abdominal x-ray demonstrates a nonspecific bowel gas pattern. There is amount of stool in the colon. No other pathology noted. Formal read per the Radiologist pending. The patient's CBC is unremarkable. His CMP is remarkable for a potassium depressed at 3.0, with the remainder of his CMP being unremarkable. His magnesium level is within normal limits at 1.8. His troponin is undetectably low. His urinalysis is unremarkable. His urine drug screen is positive for both methamphetamine and amphetamine, but is otherwise negative. 08/30/19 21:14 I went to discuss the test results with the patient, but he is currently sleeping. He will need to be woken to receive the oral KCl, however, my plan is to just let him sleep here in the ED for a while, allowing the methamphetamine to get out of his system. He can go home whenever he feels up to it. 08/31/19 05:58 The patient has been sleeping peacefully overnight. I woke him up, and he is much more lucid at this time. I explained that his symptoms were likely due to hyperventilation, and that his hyperventilation was likely fueled by methamphetamine. I recommended that he seek professional treatment with respect to his methamphetamine abuse, and I recommended that he go to [facility]. He said that he might. Departure - Departure Time of Disposition: 05:59 Disposition: Home, Self-Care 01 Condition: Good Clinical Impression: Hyperventilation syndrome, Methamphetamine addiction, Hypokalemia - Discharge Information *PRESCRIPTION DRUG MONITORING PROGRAM REVIEWED*: Not Applicable *COPY OF PRESCRIPTION DRUG MONITORING REPORT IN PATIENT VANNESSA: Not Applicable Referrals: PCP,Unknown [Ordering Only Provider] - Additional Instructions: You were seen in the emergency room after feeling like people were pointing and yelling at you at [facility], then feeling like you were buzzing all over, with shortness of breath, chest pain, and feeling like you are going to . Work-up in the ER included blood work, a urinalysis, a urine drug screen, and x- ray of your abdomen, and an ECG. Your blood work showed your potassium level to be mildly low at 3.0, and your urine drug screen was positive for methamphetamine. The remainder of your work- up was unremarkable. Based on your history, physical exam, and ER tests, your symptoms were most likely due to hyperventilation, and your hyperventilation was most likely fueled by methamphetamine. You were given oral potassium replacement in the ER. We strongly recommend that you seek professional help to stop using methamphetamine. We recommend that you go to [facility]: [address] [phone] If any other problems, please do not hesitate to return to the ER. Sepsis Event Note - Evaluation Sepsis Screening Result: No Definite Risk - Focused Exam Vital Signs: Vital Signs Temp Pulse Resp BP Pulse Ox 08/30/19 18:32 36.7 C 115 H 26 H 126/104 H 100 Date Exam was Performed: 08/31/19 Time Exam was Performed: 05:58 - My Orders Last 24 Hours: My Active Orders 08/30/19 19:28 EKG Documentation Completion [RC] STAT 08/30/19 19:30 Abdomen 1V Upright [CR] Stat - Assessment/Plan Last 24 Hours: My Active Orders 08/30/19 19:28 EKG Documentation Completion [RC] STAT 08/30/19 19:30 Abdomen 1V Upright [CR] Stat
[2019-08-30] MEDS ORDERED: Potassium Chloride 20 MEQ Tab.ER PO ONE (21:00)
--- NOTE | 2019-08-31 09:49 | CR ---
Abdomen: Upright view of the abdomen was obtained. Comparison: No previous abdominal x-ray. Slight increased stool throughout the colon is seen. Bowel gas pattern is otherwise unremarkable. Minimal scoliosis is noted within the spine with minimal degenerative change scattered within the spine. No soft tissue abnormality or free air is seen. Impression: 1. Slight increased stool within the colon. 2. Other findings believed to be nonacute. Diagnostic code #2 Study was dictated in MDT
== END 2019-08-31 06:24 | disposition home or self-care (01) ==
LOC: JD.ED 18:30
DX: E87.6 Hypokalemia (principal); F45.8 Other somatoform disorders; F15.20 Other stimulant dependence, uncomplicated; F17.210 Nicotine dependence, cigarettes, uncomplicated
CPT/HCPCS: 36415; 74018; 80053; 80306; 81001; 83735; 84484; 85007; 85027; 93005; 96361; 96374; 96375; 99285; A9270; J2060; J2405; J7120; 93010; 99284

== ENCOUNTER 2019-09-01 15:18 | Emergency (ER) | payer SELFPAY ==
[2019-09-01 15:28] VITALS: BP 120/89; PULSE 103
[2019-09-01] MEDS ORDERED: Acetaminophen 325 MG Tab PO ONE (15:37)
[2019-09-01] MEDS ORDERED: LORazepam 1 MG Tab PO ONE (15:37)
--- NOTE | 2019-09-01 15:43 | EDM.PDOCBH ---
ED HPI GENERAL MEDICAL PROBLEM - General Chief Complaint: Behavioral/Psych Stated Complaint: [facility] Time Seen by Provider: 09/01/19 15:23 Source of Information: Reports: Patient, EMS History Limitations: Reports: No Limitations - History of Present Illness INITIAL COMMENTS - FREE TEXT/NARRATIVE: The patient presents by [facility] for anxiety, chest pain, headache, abdominal pain, nausea and vomiting. He has been trying to get in contact with his girlfriend. She kicked him out. He is trying to get his possessions back. He was hyperventilating when EMS arrived and very anxious. He does admit to doing meth about 3 days ago. He has some shortness of breath with the chest pain. He has not been able to keep much down. He also had some diarrhea. Onset: Gradual Duration: Day(s): Location: Reports: Head, Chest, Abdomen Quality: Reports: Sharp Severity: Moderate Improves with: Reports: None Worsens with: Reports: None Associated Symptoms: Reports: Chest Pain, Headaches, Nausea/Vomiting, Shortness of Breath. Denies: Cough, Fever/Chills Generalized Pain Score (Numeric/FACES): 7 - Related Data Allergies Allergy/AdvReac Type Severity Reaction Status Date / Time No Known Allergies Allergy Verified 08/30/19 18:41 Home Meds: Home Meds LORazepam [Ativan] 1 mg PO Q8H PRN #6 tablet 09/01/19 [Rx] Past Medical History - Past Health History Medical/Surgical History: Denies Medical/Surgical History HEENT History: Reports: Impaired Vision Psychiatric History: Reports: Addiction - Past Surgical History HEENT Surgical History: Reports: Oral Surgery Social & Family History - Family History Family Medical History: Noncontributory - Tobacco Use Smoking Status *Q: Current Every Day Smoker Years of Tobacco use: 25 Packs/Tins Daily: 0.5 - Caffeine Use Caffeine Use: Reports: Soda - Recreational Drug Use Recreational Drug Use: Yes Drug Use in Last 12 Months: Yes Recreational Drug Type: Reports: Amphetamines (Speed), Methamphetamine Recreational Drug Use Frequency: Daily - Living Situation & Occupation Living situation: Reports: , with Significant Other (Girlfriend) 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[employer]) ED ROS GENERAL - Review of Systems Review Of Systems: See Below Constitutional: Reports: No Symptoms HEENT: Reports: No Symptoms Respiratory: Reports: No Symptoms Cardiovascular: Reports: Chest Pain Endocrine: Reports: No Symptoms GI/Abdominal: Reports: Abdominal Pain, Nausea, Vomiting Musculoskeletal: Reports: No Symptoms Skin: Reports: No Symptoms ED EXAM, BEHAVIORAL HEALTH - Physical Exam Exam: See Below Exam Limited By: No Limitations General Appearance: Alert, No Apparent Distress Ears: Normal External Exam Nose: Normal Inspection Head: Atraumatic, Normocephalic Neck: Normal Inspection Respiratory/Chest: No Respiratory Distress, Lungs Clear, Normal Breath Sounds Cardiovascular: Regular Rate, Rhythm, No Edema, No Murmur GI/Abdominal: Soft, No Organomegaly, No Mass, Tender (Mild upper abdominal tenderness) Back Exam: Normal Inspection Extremities: Normal Inspection COURSE, BEHAVIORAL HEALTH COMP - Course Vital Signs: Last Vital Signs Temp 98.1 F 09/01/19 15:23 Pulse 103 H 09/01/19 15:23 Resp 12 09/01/19 15:23 BP 120/89 09/01/19 15:23 Pulse Ox 98 09/01/19 15:23 Orders, Labs, Meds: Active Orders 24 hr Category Date Time Status EKG Documentation Completion [RC] ASDIRECTED Care 09/01/19 15:36 Active EKG 12 Lead [EK] Stat Ther 09/01/19 15:36 Ordered Medications Discontinued Medications Generic Name Dose Route Start Last Admin Trade Name Aidan PRN Reason Stop Dose Admin Acetaminophen 975 mg 09/01/19 15:37 09/01/19 15:43 Tylenol PO 09/01/19 15:38 975 mg NOW ONE Administration Lorazepam 1 mg 09/01/19 15:37 09/01/19 15:44 Ativan PO 09/01/19 15:38 1 mg ONETIME ONE Administration Re-Assessment/Re-Exam: I ordered an EKG, ativan, and tylenol. He feels better and he was sleeping when I checked him. I will discharge him home with some ativan. Departure - Departure Time of Disposition: 16:30 Disposition: Home, Self-Care 01 Condition: Good Clinical Impression: Exposure to methamphetamine, Atypical chest pain Headache Qualifiers: Headache type: unspecified Headache chronicity pattern: acute headache Intractability: not intractable Qualified Code(s): R51 - Headache Abdominal pain Qualifiers: Abdominal location: upper abdomen, unspecified Qualified Code(s): R10.10 - Upper abdominal pain, unspecified - Discharge Information *PRESCRIPTION DRUG MONITORING PROGRAM REVIEWED*: Not Applicable *COPY OF PRESCRIPTION DRUG MONITORING REPORT IN PATIENT VANNESSA: Not Applicable Prescriptions: LORazepam [Ativan] 1 mg PO Q8H PRN #6 tablet PRN Reason: Anxiety Referrals: PCP,Unknown [Ordering Only Provider] - Tiffany Fontenot [employer]ARD SWITCHER [Nurse Practitioner] - 1 Week Forms: ED Department Discharge Additional Instructions: Take tylenol or motrin for your headache. Take the ativan as needed for anxiety. Sepsis Event Note - Evaluation Sepsis Screening Result: No Definite Risk - Focused Exam Vital Signs: Vital Signs Temp Pulse Resp BP Pulse Ox 09/01/19 15:23 98.1 F 103 H 12 120/89 98 Date Exam was Performed: 09/01/19 Time Exam was Performed: 16:30 - My Orders Last 24 Hours: My Active Orders 09/01/19 15:36 EKG Documentation Completion [RC] ASDIRECTED EKG 12 Lead [EK] Stat - Assessment/Plan Last 24 Hours: My Active Orders 09/01/19 15:36 EKG Documentation Completion [RC] ASDIRECTED EKG 12 Lead [EK] Stat
== END 2019-09-01 16:45 | disposition home or self-care (01) ==
LOC: JD.ED 15:18
DX: R07.89 Other chest pain (principal); R51 Headache; R10.10 Upper abdominal pain, unspecified; T43.621A Poisoning by amphetamines, accidental (unintentional), initial encounter; F17.210 Nicotine dependence, cigarettes, uncomplicated
CPT/HCPCS: 93005; 99285; A9270

== ENCOUNTER 2022-09-12 15:20 | Emergency (ER) | payer MEDICAID ==
[2022-09-12] MEDS ORDERED: Lidocaine 1% 10 ML MDV INJECT ONE (16:34)
[2022-09-12] MEDS ORDERED: Sulfamethoxazole/Trimethoprim 800-160 MG Tab PO ONE (16:39)
[2022-09-12 17:58] VITALS: BP 113/82; PULSE 102
== END 2022-09-12 17:35 | disposition home or self-care (01) ==
LOC: JD.ED 15:20
DX: L02.214 Cutaneous abscess of groin (principal)
CPT/HCPCS: 10061; 99282; A9270; 10060; 99283; J3490

== ENCOUNTER 2025-01-18 09:00 | Emergency (ER) | payer MEDICAID ==
[2025-01-18] MEDS: cefTRIAXone 1 GM, Lidocaine 1% 2.1 ML IM ONE (09:41)
[2025-01-18 09:51] VITALS: BP 124/84; PULSE 97
== END 2025-01-18 09:52 | disposition home or self-care (01) ==
LOC: JD.ED 09:00
DX: L01.02 Bockhart's impetigo (principal); F42.4 Excoriation (skin-picking) disorder; L03.811 Cellulitis of head [any part, except face]
CPT/HCPCS: 96372; 99283; J0696; J2003; J7512; 99284